=== PATIENT | female | born 1960 | race Caucasian/White ===

== ENCOUNTER 2019-03-06 04:48 | Emergency (ER) | payer BC ==
[~2019-03-06] VITALS: Ht 152.4 cm; Wt 84.1 kg
[2019-03-06 05:13] VITALS: Ht 152.4 cm; Wt 84.1 kg
--- NOTE | 2019-03-06 06:25 | ERD ---
ER Documentation Chief Complaint Chief Complaint RA89; WEAKNESS, NAUSEA, CHILLS XTODAY HPI This is a 59-year-old woman brought in by EMS from home for palpitations and feeling weak, patient does have a history of similar symptoms and uses atenolol daily to help control tachycardic episodes, she did use last night's dose but not this morning's. She had some nausea but no vomiting, no complaints of chest pain or shortness of breath, no calf or leg swelling. Patient denies abdominal pain, no fevers or chills, no headache or blurry vision. Patient was transported here by EMS without further complications ROS All systems reviewed and are negative except as per history of present illness. PMhx/Soc Hypertension, CHF, obesity, SVT/palpitations, History of Surgery: No Anesthesia Reaction: No Hx Neurological Disorder: No Hx Respiratory Disorders: No Hx Cardiac Disorders: Yes (HTN) Hx Psychiatric Problems: No Hx Miscellaneous Medical Probl: No Hx Alcohol Use: No Hx Substance Use: No Hx Tobacco Use: No Smoking Status: Never smoker FmHx Family History: No diabetes Physical Exam Vitals Vital Signs Date Temp Pulse Resp B/P (MAP) Pulse Ox O2 O2 Flow FiO2 Time Delivery Rate 03/06/19 98.9 87 18 119/69 97 05:13 (86) Physical Exam GENERAL: Well-developed, well-nourished, well-hydrated, anxious, afebrile NEURO: Alert and oriented 3, cranial nerves II through XII intact bilaterally, pupils equal round reactive to light, no focal deficits or facial asymmetry, sensation intact distally Strength 5/5 in upper and lower extremities bilaterally CARDIAC: Regular rate and rhythm, no murmurs rubs or gallops LUNGS: Clear bilaterally no wheezing crackles or stridor ABDOMEN: Soft nontender, no guarding, no rigidity, no rebound, no psoas sign no obturator sign. Normoactive bowel sounds SKIN: Warm and dry to touch, no abrasions, contusions, or hematomas, no lacerations, no ecchymosis, no target lesions, and without ulcers EXTREMITIES: No clubbing cyanosis or edema, calves are bilaterally symmetrical, no Homans sign, no popliteal cord sign. Distal pulses equal and bilateral PSYCH: Anxious Result Diagram: 03/06/19 0509 03/06/19 0509 Results 24 hrs Laboratory Tests Test 03/06/19 05:05 03/06/19 05:09 03/06/19 07:10 Bedside Glucose 84 mg/dL White Blood Count 13.0 10^3/ul Red Blood Count 4.45 10^6/ul Hemoglobin 12.9 g/dl Hematocrit 40.5 % Mean Corpuscular Volume 91.0 fl Mean Corpuscular Hemoglobin 29.0 pg Mean Corpuscular 31.9 g/dl Hemoglobin Concent Red Cell Distribution Width 13.9 % Platelet Count 331 10^3/UL Mean Platelet Volume 10.8 fl Immature Granulocytes % 0.300 % Neutrophils % 63.0 % Lymphocytes % 25.1 % Monocytes % 9.0 % Eosinophils % 2.1 % Basophils % 0.5 % Nucleated Red Blood Cells % 0.0 /100WBC Immature Granulocytes # 0.040 10^3/ul Neutrophils # 8.2 10^3/ul Lymphocytes # 3.3 10^3/ul Monocytes # 1.2 10^3/ul Eosinophils # 0.3 10^3/ul Basophils # 0.1 10^3/ul Nucleated Red Blood Cells # 0.0 10^3/ul Sodium Level 143 mmol/L Potassium Level 4.1 mmol/L Chloride Level 105 mmol/L Carbon Dioxide Level 25 mmol/L Anion Gap 13 Blood Urea Nitrogen 17 mg/dl Creatinine 0.65 mg/dl Est Glomerular Filtrat > 60 mL/min Rate mL/min Glucose Level 73 mg/dl Calcium Level 9.6 mg/dl Total Bilirubin 0.5 mg/dl Direct Bilirubin 0.00 mg/dl Indirect Bilirubin 0.5 mg/dl Aspartate Amino 36 IU/L Transf (AST/SGOT) Alanine 19 IU/L Aminotransferase (ALT/SGPT) Alkaline Phosphatase 100 IU/L Troponin I < 0.012 ng/ml Total Protein 7.4 g/dl Albumin 4.4 g/dl Globulin 3.00 g/dl Albumin/Globulin Ratio 1.46 Lipase 129 U/L Urine Color COLORLESS Urine Clarity CLEAR Urine pH 7.0 Urine Specific [place] 1.005 Urine Ketones NEGATIVE mg/dL Urine Nitrite NEGATIVE mg/dL Urine Bilirubin NEGATIVE mg/dL Urine Urobilinogen NEGATIVE mg/dL Urine Leukocyte Esterase TRACE Hubert/ul Urine Microscopic RBC 0 /HPF Urine Microscopic WBC 3 /HPF Urine Hemoglobin NEGATIVE mg/dL Urine Glucose NEGATIVE mg/dL Urine Total Protein NEGATIVE mg/dl Current Medications Medications Dose Sig/Fili Start Time Status Last (Trade) Ordered Route PRN Stop Time Admin Dose Reason Admin Atenolol 50 mg ONCE ONCE 03/06/19 DC 03/06/19 (Tenormin) PO 07:00 08:06 03/06/19 07:01 Procedures/MDM IV line was established patient was placed on pickle solution maker rhythm strip revealed a wide-complex tachycardia at 140 bpm with upright P and T waves. Patient was afebrile EKG performed, read by me revealed an SVT with aberrancy at 138 bpm, left axis deviation, right ventricular conduction delay, no concerning ST elevations or depressions noted 1 view chest x-ray performed, read by me revealed cardiomegaly and congestion bilaterally, no acute infiltrates, no pneumothorax CBC and electrolytes were normal, liver function tests normal, troponin negative Repeat EKG performed, read by me revealed a normal sinus rhythm at 88 bpm, left axis deviation, right ventricular conduction delay QRS duration 108 ms, no concerning ST elevations or depressions noted I administered atenolol 10 mg p.o. x1 CBC and electrolytes were normal, liver function tests were normal, troponin negative, urinalysis negative for infection Patient's vital signs are normal and her symptoms have resolved, she will be discharged to follow-up with PMD Differential diagnoses considered, included but not limited to acute coronary syndrome, pulmonary embolism, aortic dissection, abdominal aortic aneurysm, sepsis, stroke, meningitis, encephalitis, pneumonia, appendicitis, cholecystitis, bowel obstruction, pyelonephritis, nephrolithiasis, cystitis, as well as metabolic, hematologic, and electrolyte abnormalities. As well as abscess, cellulitis, fractures, and dislocations. Patient feels much better at this time, and vital signs are normal, symptoms have improved. I did give strict instructions to return to the ED if symptoms continue or worsen, patient will otherwise follow-up with primary care physician. Patient understood instructions and agreed to plan. Disclaimer: Inadvertent spelling and grammatical errors are likely due to EHR/dictation software use and do not reflect on the overall quality of patient care. Also, please note that the electronic time recorded on this note does not necessarily reflect the actual time of the patient encounter. Departure Diagnosis: Primary Impression: Acute weakness Additional Impressions: SVT (supraventricular tachycardia) Palpitations Condition: SANDRA Roy MD March 06, 2019 06:25
[2019-03-06] MEDS ORDERED: ATENOLOL 50 MG TAB PO ONE (07:00)
[2019-03-06 08:18] VITALS: BP 113/69; PULSE 85; RESP 18
--- NOTE | 2019-03-08 14:47 | RADRPT ---
Vent Rate: 88 bpm RR Interval: 0 msec MD Interval: 152 msec QRS Duration: 108 msec QT Interval: 392 msec QTC Interval: 474 msec P-R-T [place]: 28 - -3 - 23 degrees Normal sinus rhythm Low voltage QRS Cannot rule out Anterior infarct , age undetermined Abnormal ECG Electronically Signed By: [facility]
--- NOTE | 2019-03-08 14:48 | RADRPT ---
Vent Rate: 138 bpm RR Interval: 0 msec NC Interval: 0 msec QRS Duration: 104 msec QT Interval: 320 msec QTC Interval: 484 msec P-R-T [place]: 44 - -43 - 53 degrees Undetermined rhythm Left axis deviation Low voltage QRS Cannot rule out Anterior infarct , age undetermined Abnormal ECG Electronically Signed By: [facility]
== END 2019-03-06 08:22 | disposition home or self-care (01) ==
LOC: E/R 04:48
DX: I47.1 Supraventricular tachycardia (principal); I11.0 Hypertensive heart disease with heart failure; I50.9 Heart failure, unspecified; E66.9 Obesity, unspecified; Z68.36 Body mass index [BMI] 36.0-36.9, adult
CPT/HCPCS: 36415; 71045; 80053; 81001; 82962; 83690; 84484; 85025; 87040; 87086; 93005; Z7502; Z7610